=== PATIENT | male | born 1960 | race Caucasian/White ===

== ENCOUNTER 2021-04-25 18:44 | Inpatient (IN) | payer OTHER ==
[~2021-04-25] VITALS: Ht 175.3 cm; Wt 77.0 kg
[2021-04-25 19:20] LABS: BASOPHILS ABSOLUTE AUTO 0.05 K/mm3 (0.00-0.23); BASOPHILS PERCENT AUTO 1 % (0-2); EOSINOPHILS ABSOLUTE AUTO 0.12 K/mm3 (0.00-0.68); EOSINOPHILS PERCENT AUTO 1 % (0-6); Hematocrit 49.2 % (37.0-53.0); Hemoglobin 16.2 g/dL (13.5-17.5); IMMATURE GRAN ABSOLUTE AUTO 0.07 K/mm3 (0.00-0.10); IMMATURE GRAN PERCENT AUTO 1 % (0-1); LYMPHOCYTES ABSOLUTE AUTO 0.89 K/mm3 (0.84-5.20); LYMPHOCYTES PERCENT AUTO 8 % (21-46); MONOCYTES ABSOLUTE AUTO 0.72 K/mm3 (0.16-1.47); MONOCYTES PERCENT AUTO 7 % (4-13); Mean Corpuscular HGB 28.3 pg (26.0-34.0); Mean Corpuscular HGB Conc 32.9 g/dL (31.5-36.5); Mean Corpuscular Volume 86 fL (80-100); Mean Platelet Volume 11.2 fL (9.1-12.4); NEUTROPHILS PERCENT AUTO 83 % (41-73); Platelet Count 254 K/mm3 (150-400); RDW Coefficient Variation 12.6 % (11.7-14.2); RDW Standard Deviation 39.3 fL (35.1-46.3); Red Blood Cell Count 5.73 M/mm3 (4.30-5.90); White Blood Cell Count 10.85 K/mm3 (4.00-11.30)
[2021-04-25 19:44] LABS: Alanine Aminotransfer (ALT/SGP 286 U/L (12-78); Albumin, Blood 4.3 g/dL (3.4-5.0); Alk Phos 273 U/L (50-136); Anion Gap 7 mmol/L (6-16); Aspartate Aminotrans (AST/SGOT 145 U/L (12-37); Bilirubin, Total 3.2 mg/dL (0.1-1.0); Blood Urea Nitrogen 12 mg/dL (8-24); Bun/Creatinine Ratio 11.4 (12.0-20.0); CO2, Blood 29 mmol/L (21-32); Calcium, Blood 9.8 mg/dL (8.5-10.1); Chloride, Blood 101 mmol/L (98-108); Creatinine, Blood 1.05 mg/dL (0.60-1.20); Globulin, Blood 4.3 g/dL (2.2-4.0); Glomerular Filtration Rate >60 (60-); Glucose, Blood 150 mg/dL (70-99); Potassium, Blood 3.8 mmol/L (3.5-5.5); Sodium, Blood 137 mmol/L (136-145); Total Protein, Blood 8.6 g/dL (6.4-8.2); Troponin I <0.015 ng/mL (0.000-0.040)
[2021-04-25] MEDS ORDERED: AMIT25 PO (22:10)
[2021-04-25 23:55] LABS: Influenza A, PCR NEGATIVE (NEGATIVE); Influenza B, PCR NEGATIVE (NEGATIVE); Resp Syncytial Virus, PCR NEGATIVE (NEGATIVE); SARS-Cov-2 (COVID-19) PCR, MMC NEGATIVE (NEGATIVE)
--- NOTE | 2021-04-26 04:32 | NUR ---
SHIFT SUMMARY PT ADMITTED FOR PANCREATITIS WITH GALLSTONES. 0130: CHELSIE ARRIVED TO SURGICAL FLOOR FROM ER VIA WHEELCHAIR, ACCOMPANIED BY TWO ER STAFF. CHELSIE AMBULATED INDEPENDENTLY TO THE SURGICAL BED. IV ACCESS 20G IN LEFT AC. ROOM AIR. LUNGS CLEAR. A&O X4. TELEMETRY MONITORING NSR 71. NPO. BEDREST WITH BATHROOM PRIVILEGES. SCDS IN PLACE. PLAN: SURGICAL CONSULT WITH DR. WORLEY IN THE AM, POSSIBLE TRANSFER. CONSULT CALLED TO LAMONTE AT ANSWERING SERVICE. AT THIS TIME, PT DENIES PAIN, NAUSEA, VOMITING. REPORTS LAST BM WAS THURSDAY AM. BOWELTONES PRESENT. STATES HE HAS HAD DECREASED APPETITE X 2 YEARS, SINCE HIS FIRST DX OF GALLSTONES. REPORTS HE EATS SMALL FREQUENT SNACKS THROUGHOUT THE DAY. HE IS CONCERNED DUE TO HIS LACK OF HEALTH INSURANCE, HE QUIT HIS JOB A [employer] ORDER PICKER 6 MONTHS AGO DUE TO A JOB RELATED INJURY TO THE RIGHT SHOULDER. GIVEN PACKET IN THE ER WITH INFORMATION ON HOW TO OBTAIN INSURANCE.
[2021-04-26 06:04] LABS: Alanine Aminotransfer (ALT/SGP 260 U/L (12-78); Albumin, Blood 3.5 g/dL (3.4-5.0); Albumin/Globulin Ratio 1.2 (0.8-1.8); Alk Phos 228 U/L (50-136); Anion Gap 6 mmol/L (6-16); Aspartate Aminotrans (AST/SGOT 132 U/L (12-37); Bilirubin, Total 4.2 mg/dL (0.1-1.0); Blood Urea Nitrogen 12 mg/dL (8-24); Bun/Creatinine Ratio 12.5 (12.0-20.0); CO2, Blood 28 mmol/L (21-32); Calcium, Blood 8.8 mg/dL (8.5-10.1); Chloride, Blood 106 mmol/L (98-108); Creatinine, Blood 0.96 mg/dL (0.60-1.20); Globulin, Blood 2.9 g/dL (2.2-4.0); Glomerular Filtration Rate >60 (60-); Glucose, Blood 118 mg/dL (70-99); Potassium, Blood 4.3 mmol/L (3.5-5.5); Sodium, Blood 140 mmol/L (136-145); Total Protein, Blood 6.4 g/dL (6.4-8.2)
--- NOTE | 2021-04-26 16:01 | NUR ---
ASSUMED CARE OF PATIENT. PT UP IN ROOM TO BATHROOM. PT LAKISHA PO CLEAR LIQUIDS AND DENIES PAIN OR NAUSEA
--- NOTE | 2021-04-26 17:14 | NUR ---
PT DENIES ABD PAIN OR NAUSEA. LAKISHA CLEAR LIQUIDS. UP TO BR INDEPENDENTLY.
--- NOTE | 2021-04-27 04:45 | NUR ---
PT DENIES CHEST PAIN OR NAUSEA. TELEMETRY CONTINUES TO MONITOR, SINUS RYTHYM 70'S. VSS. NO ACUTE CHANGES. NPO AT MIDNIGHT, AWAITING LAB RESULTS. POSSIBLE MRI VS. CHOLECYSTECTOMY BASED ON BILIRUBIN LEVELS. PT IS ABLE TO AMBULATE AD DENISSE IN ROOM TO VOID. NO C/O DYSURIA. IV ACCESS TO LEFT AC, LACTATED RINGERS INFUSING.
[2021-04-27 06:25] LABS: Alanine Aminotransfer (ALT/SGP 222 U/L (12-78); Albumin, Blood 3.1 g/dL (3.4-5.0); Albumin/Globulin Ratio 0.9 (0.8-1.8); Alk Phos 202 U/L (50-136); Anion Gap 6 mmol/L (6-16); Aspartate Aminotrans (AST/SGOT 94 U/L (12-37); Bilirubin, Total 1.4 mg/dL (0.1-1.0); Blood Urea Nitrogen 11 mg/dL (8-24); Bun/Creatinine Ratio 11.8 (12.0-20.0); CO2, Blood 28 mmol/L (21-32); Calcium, Blood 8.8 mg/dL (8.5-10.1); Chloride, Blood 107 mmol/L (98-108); Creatinine, Blood 0.93 mg/dL (0.60-1.20); Globulin, Blood 3.4 g/dL (2.2-4.0); Glomerular Filtration Rate >60 (60-); Glucose, Blood 106 mg/dL (70-99); Potassium, Blood 3.8 mmol/L (3.5-5.5); Sodium, Blood 141 mmol/L (136-145); Total Protein, Blood 6.5 g/dL (6.4-8.2)
--- NOTE | 2021-04-27 11:12 | NUR ---
PATIENT TO SURGEY VIA BED
--- NOTE | 2021-04-27 14:58 | NUR ---
PT. BACK TO ROOM 221 FROM PACU, VIA BED, AT THIS TIME.
--- NOTE | 2021-04-27 15:01 | NUR ---
PT. SLEEPY, SATS ARE 100% ON RA, DENIES NAUSEA OR PAIN AT THIS TIME. PILLOW GIVEN FOR SPLINTING, INSTRUCTED PT. TO COUGH, DEEP BREATHE, PT. COMPLIANT AND USING PILLOW OVER ABDOMEN. INCISION SITES X 4 WELL APPROXIMATED, CLEAN AND DRY WITH STERI STRIPS INTACT. CALL LIGHT PLACED WITHIN REACH.
--- NOTE | 2021-04-27 15:45 | NUR ---
CALLED PER PT. REQUEST TO NOTIFY HER OF HIS STATUS, SPENDING THE NIGHT. DR. WORLEY IN AT THIS TIME AND NOTIFIED OF ELEVATED BLOOD PRESSURE. PATIENT DENIES DISCOMFORT OR NAUSEA. STATES HE FEELS VERY SLEEPY.
--- NOTE | 2021-04-27 23:46 | NUR ---
PT AAOX4. IN BED TEMP AT 100.3 REPORT FROM INTERNET MARKETING COORDINATOR. PAIN ASESSMENT PT REPORTS PAIN LEVEL 4/10. MEDICATED WITH PRN MEDICATION PER EMAR. WILL CONTINUE TO MONITOR AND MAINTAIN ALL PRECAUTOONS.
--- NOTE | 2021-04-28 04:02 | NUR ---
SHIFT SUMMARY: PT IS AAOX4. VS WNL AND ON RA. LAP SITE ON ABDOMEN C/D/I WITH STERI STRIP.TELE SR AT 77 REPORT FROM TECH. PT AMBULATES TO BATHROOM. IV SITE PATENT WTTH LR INFUSING ORDERED. TOLERATING CLEAR LIQUIDS. D/C LR TOLERATING FLUIDS. 234 PT TEMP AT 100.3 ASSESS PAIN LEVEL AT 4/10. MEDICATED WITH PRN MEDICATION PER EMAR. TOLERATED WELL. MONITORING AND MAINTAINING ALL PRECAUTION. PT REASSESS 0300 TEMP DECREASED 97.9 AND PAIN LEVEL 2/10. BP 127/86. BOWEL SOUNDS ACTIVE. RESTING WITH EYES CLOSED IN BED.
[2021-04-28] MEDS ORDERED: HYDR1TAB94 PO (11:21)
--- NOTE | 2021-04-28 12:22 | NUR ---
DISCHARGE SUMMARY POD2 JOSIE HARRINGTON, A/OX 4, VSS, TOLERATING PO, INDEPENDENT IN ROOM, PAIN CONTROLLED c ORAL MEDICATIONS, DISCUSSED DISCHARGE ORDERS AND HOME CARE c PT, DISCUSSED FOLLOW UP APPOINTMENTS AND ANSWERED ALL QUESTIONS, PT STATES HE HAS NO ADDITIONAL QUESTIONS AT THIS TIME, IV ACCESS REMOVED AND NO OTHER DEVICES IN PLACE, TELE OFF AND RETURNED TO TELEMETRY, PT PICKED UP BY SIGNIFICANT OTHER AT ER ENTRANCE.
== END 2021-04-28 12:23 | disposition home or self-care (01) | DRG 419 ==
LOC: ER 18:44 → SURS 18:45
PROVIDERS: Emergency Medicine; Physician Assistant; Surgery; ADMIT Internal Medicine
PROC: BF141ZZ Fluoroscopy of Gallbladder, Bile Ducts and Pancreatic Ducts using Low Osmolar Contrast (ICD-10-PCS; 2021-04-27)
PROC: 0FT44ZZ Resection of Gallbladder, Percutaneous Endoscopic Approach (ICD-10-PCS; principal; 2021-04-27 12:30)
DX: K85.10 Biliary acute pancreatitis without necrosis or infection (principal); Z20.822 Contact with and (suspected) exposure to COVID-19; G62.9 Polyneuropathy, unspecified; Z53.20 Procedure and treatment not carried out because of patient's decision for unspecified reasons; Z79.899 Other long term (current) drug therapy
CPT/HCPCS: 0241U; 36415; 71045; 74300; 76705; 80053; 83605; 83690; 84484; 85025; 88304; 93005; 93010; 99285-25; A9270; C1894; G0378; J0690; J1100; J1885; J2250; J2405; J2704; J2710; J2765; J3010; J7030; J7120